=== PATIENT | male | born 1945 | race Caucasian/White ===

== ENCOUNTER → 2019-08-08 | Outpatient (CLI) | payer OTHER ==
[~2019-08-08] MED LIST: OXYACE5T PO; PROM25 PO; RXOXYACE PO; SULTRIDS PO; TAMS.4ER PO
[2019-08-08 13:38] LABS: Stool Occult Bld Immuno 1 Negative (NEGATIVE)
== END | disposition home or self-care (01) ==
LOC: LAB 08:13 → LAB SHORT 08:13
PROVIDERS: Family Medicine
DX: Z12.11 Encounter for screening for malignant neoplasm of colon (principal)
CPT/HCPCS: G0328

== ENCOUNTER → 2022-06-12 | Outpatient (CLI) | payer OTHER | LOC: LAB 07:19 → LAB SHORT 07:19 | DX: K52.9 Noninfective gastroenteritis and colitis, unspecified (principal) | CPT/HCPCS: 87015; 87045; 87046; 87205; 87899 ==

== ENCOUNTER 2025-06-06 08:21 | Day surgery (SDC) | payer OTHER ==
[~2025-06-06] VITALS: Ht 162.6 cm; Wt 60.9 kg
[~2025-06-06 08:21] MED LIST changes: +Balanced Salt Epinephrine Irrigation Solution 500 mL IR SCH; +Moxifloxacin HCL 0.5 MG/0.1 ML 0.4MLSYR LEFTEYE SCH; +Ondansetron 4 MG SoluTab MM PRN; +PHENYLEPHRINE\\TROPICAMIDE\\TETRACAINE OPHTHALMIC DILATING SOLN LEFTEYE PRN; +Povidone-Iodine 450 DROP/30 ML Solution LEFTEYE SCH; +Povidone-Iodine 450 DROP/30 ML Solution ONE; +Tetracaine HCl/Pf 0.5% Opth Soln 4 ml ONE; +Triamcinolone Inj Susp 40 MG / ML 1ML Vial INJ SCH; +Triamcinolone Inj Susp 40 MG / ML 1ML Vial ONE; +diazePAM 2 MG,diazePAM 5 MG PO SCH
--- NOTE | 2025-06-06 08:49 | NUR ---
06/06/25 0849 Nava Warren PT STATES ANXIETY LEVEL IN PREOP IS 6/10 PT IS ON CONTINUOUS PULSE OX MONITORING PT HAS CALL LIGHT IN HAND
[2025-06-06] MEDS ORDERED: FLUT.05NI (08:52)
[2025-06-06] MEDS ORDERED: Tetracaine HCl 0.5% Opth Soln 15 ml LEFTEYE ONE (09:23)
--- NOTE | 2025-06-06 09:29 | NUR ---
06/06/25 0928 Avni Jeter N 119/72 52 98% ON 10L BLOW BY O2 18
[2025-06-06 10:08] VITALS: BP 114/70
--- NOTE | 2025-06-06 10:09 | NUR ---
06/06/25 Dominic Meeks PT STATES CURRENT VITALS CLOSER TO BASELINE THAN PRE-OP, WITHIN 20%. PT INSTRUCTED TO MONITOR B/P AT HOME AND FOLLOW UP WITH PCP IF NEEDED.
== END 2025-06-06 09:58 | disposition home or self-care (01) ==
LOC: ORSCSDS 08:21
PROVIDERS: Ophthalmology
PROC: 08RK3JZ Replacement of Left Lens with Synthetic Substitute, Percutaneous Approach (ICD-10-PCS; principal; 2025-06-06 10:00)
DX: H25.812 Combined forms of age-related cataract, left eye (principal); Z79.899 Other long term (current) drug therapy
CPT/HCPCS: A9270; J3301; V2632